=== PATIENT | male | born 1965 | race Caucasian/White ===

== ENCOUNTER → 2020-05-12 | Outpatient (CLI) | payer BC | LOC: LAB 14:50 | PROVIDERS: ATTEND Nurse Anesthetist, Certified Registered | DX: Z01.812 Encounter for preprocedural laboratory examination (principal); Z12.11 Encounter for screening for malignant neoplasm of colon; Z20.822 Contact with and (suspected) exposure to COVID-19 | CPT/HCPCS: C9803; U0003 ==

== ENCOUNTER → 2020-05-15 | Day surgery (SDC) | payer BC, OTHER ==
[~2020-05-15] MED LIST: IPRATRPIUM/ALBUTEROL 0.5/2.5MG 3 ML NEBU. NEB PRN; IV RINGERS SOLUTION,LACTATED 1,000 ML IV SCH; LIDOCAINE 2% PF 5 ML VIAL. ONE; MIDAZOLAM HCL PF 2 MG/2 ML VIAL. IV ONE; ONDANSETRON PF 4 MG/2 ML VIAL. IV PRN; PROPOFOL 10,000 MCG/ML (20ML) VIAL IV ONE
[2020-05-15 13:15] VITALS: BP 109/78
--- NOTE | 2020-05-20 15:13 | PATHOLOGY ---
[facility] Accession Number: [id number] . 01 Material submitted: . sigmoid colon - SIGMOID POLYP . 01 Clinical history: . COLONOSCOPY . 02 Diagnosis: Colon biopsy, sigmoid polyp: - Hyperplastic polyp. (JPM:alex; 05/20/2020) S 05/20/2020 0852 Local . 02 Comment: There are no adenomatous changes or evidence of malignancy. (JPM:alex; 05/20/2020) . 02 Electronically signed: . Juanjose Silva MD, Pathologist NPI- [id number] . 01 Gross description: . The specimen is received in formalin, labeled "Ed Butler, sigmoid polyp". Received is a segment of pale beard soft tissue measuring 0.3 cm in maximum dimensions. The specimen is submitted entirely in cassette A1. ([facility]; 05/19/2020) QA/QA 05/19/2020 1116 Local . 02 Pathologist provided ICD-10: K63.5 . 02 CPT . 013556 Specimen Comment: A courtesy copy of this report has been sent to [phone] Specimen Comment: Report sent to Performed at: 01 [facility] [address] [facility] [address], [place] [id number] MD Randolph Dukes MD Phone: [phone] Performed at: 02 [facility] [address] [place], [place] [id number] MD Juanjose Silva MD Phone: [phone]
== END | disposition home or self-care (01) ==
LOC: SURG 10:57
PROVIDERS: ATTEND Internal Medicine Gastroenterology
DX: Z12.11 Encounter for screening for malignant neoplasm of colon (principal); K63.5 Polyp of colon; K64.8 Other hemorrhoids; Z72.0 Tobacco use
CPT/HCPCS: 45380; J2001; J2704; J7120